=== PATIENT | male | born 1960 | race Caucasian/White ===

== ENCOUNTER 2023-06-24 06:51 | Observation (INO) | payer OTHER ==
[2023-06-20 10:41] VITALS: BMI 28.5
[2023-06-24 07:47] LABS: #Eosinphils 0.3 thou/uL (0.0-0.7); #Monocytes 0.8 thou/uL (0.11-0.59); #Neutrophils 5.2 thou/uL (1.40-6.50); %Basophils 0.4 % (0.0-1.0); %Eosinophils 3.1 % (0.0-10.0); %Lymphocytes 23.1 % (21.0-51.0); %Monocytes 10.1 % (0.0-10.0); %Neutrophils 62.8 % (42.0-75.0); Hemoglobin 14.7 g/dL (14.0-18.0); Mean Corpuscular HGB CONC 33.6 g/dL (32.0-36.0); Mean Corpuscular Hemoglobin 33.1 pg (27.0-31.0); Mean Corpuscular Volume 98.6 fl (78.0-98.0); Mean Platelet Volume 8.5 fL (7.4-10.4); Platelet Count 265 10x3/uL (130-400); RBC Distribution Width 13.1 % (11.5-14.5); Red Blood Cell (RBC) Count 4.44 mill/uL (4.70-6.10); White Blood Cell (WBC) Count 8.3 10x3/uL (4.8-10.8)
[2023-06-24] MEDS ORDERED: CEFAZOLIN 2 GM VIAL ONE (08:05)
[2023-06-24] MEDS ORDERED: Lidocaine 1% MPF 2 ML VIAL ONE (08:05)
[2023-06-24] MEDS ORDERED: Sodium Chloride 0.9% 100 ML ONE (08:05)
[2023-06-24 08:12] LABS: Anion Gap 10 mmol/L (10-20); BUN (Urea Nitrogen) 9 mg/dL (8.4-25.7); Calc. Creatinine Clearance 124 mL/min (70-130); Calcium 9.6 mg/dL (7.8-10.44); Carbon Dioxide 30 mmol/L (23-31); Chloride 104 mmol/L (98-107); Estimated GFR 99; Glucose 106 mg/dL (80-115); Potassium 4.2 mmol/L (3.5-5.1); Sodium 140 mmol/L (136-145)
[2023-06-24] MEDS ORDERED: Vancomycin 1 GM VIAL ONE (09:10)
[2023-06-24] MEDS ORDERED: Thrombin 5000 UNITS/5 ML VIAL ONE (09:10)
[2023-06-24] MEDS ORDERED: SUGAMMADEX SODIUM 200 MG/2 ML VIAL ONE ×2 (09:27→10:49)
[2023-06-24] MEDS ORDERED: Vasopressin 20 UNITS/ML VIAL ONE (09:27)
[2023-06-24] MEDS ORDERED: Famotidine/PF 20 mg/2ml Vial ONE (09:27)
[2023-06-24] MEDS ORDERED: fentaNYL 50 mcg/mL 1 mL Vial ONE ×3 (09:27→12:20)
[2023-06-24] MEDS ORDERED: Vecuronium 10 MG VIAL ONE (09:48)
[2023-06-24] MEDS ORDERED: Lidocaine 1% PF 5 ML VIAL ONE (09:48)
[2023-06-24] MEDS ORDERED: Ondansetron PF 4 MG/2 ML Vial ONE (09:48)
[2023-06-24] MEDS ORDERED: PROPOFOL 200 MG/20 ML VIAL ONE (09:48)
[2023-06-24] MEDS ORDERED: PHENYLEPHRINE-NS 100 MCG/ML 10 ML SYRINGE ONE (09:48)
[2023-06-24] MEDS ORDERED: Dexamethasone 20 MG/5 ML VIAL ONE (09:48)
[2023-06-24] MEDS ORDERED: Rocuronium Bromide 10 MG/ML (10ML VIAL) ONE (09:48)
[2023-06-24] MEDS ORDERED: Ketorolac Tromethamine 30 MG/ML VIAL ONE (09:48)
[2023-06-24] MEDS ORDERED: Acetaminophen/Codeine 30-300mg Tablet PO PRN (10:58)
[2023-06-24] MEDS ORDERED: Ondansetron PF 4 MG/2 ML Vial IVP PRN (10:58)
[2023-06-24] MEDS ORDERED: Milk Of Magnesia 30 ML UDCUP PO PRN (10:58)
[2023-06-24] MEDS ORDERED: Promethazine 25 MG TAB PO PRN (10:58)
[2023-06-24] MEDS ORDERED: Morphine 2 MG/ML VIAL SLOW IVP PRN (10:58)
[2023-06-24] MEDS ORDERED: Cyclobenzaprine 10 MG TAB PO PRN (10:58)
[2023-06-24] MEDS ORDERED: diphenhydrAMINE 50 MG/ML VIAL IVP PRN (10:58)
[2023-06-24] MEDS ORDERED: traMADol HCl 50 MG TAB PO PRN (10:58)
[2023-06-24] MEDS ORDERED: Acetaminophen 325 MG TAB PO PRN (10:58)
[2023-06-24] MEDS ORDERED: Mag-Al 1200 mg/1200 mg/30 ML UDCUP PO PRN (10:58)
[2023-06-24] MEDS ORDERED: Ondansetron HCl/PF 4 MG/2 ML Vial IVP PRN (11:16)
[2023-06-24] MEDS ORDERED: PACU-Morphine 4MG/ML VIAL SLOW IVP PRN (11:16)
[2023-06-24] MEDS ORDERED: Promethazine HCl 25 MG/ML VIAL IM PRN (11:16)
[2023-06-24] MEDS ORDERED: HYDROmorphone 0.5 MG/0.5 ML SYRINGE ONE ×2 (11:23→11:33)
[2023-06-24] MEDS: CEFAZOLIN 2 GM in Sodium Chloride 0.9% 100 ML IVPB SCH ×2 (16:43→23:16)
[2023-06-24] MEDS: Sodium Chloride 0.9% 1,000 ML IV SCH (18:54)
[2023-06-24] MEDS: Acetaminophen/Codeine 30-300mg Tablet PO PRN (19:27)
[2023-06-25] MEDS: Sodium Chloride 0.9% 1,000 ML IV SCH (00:08)
[2023-06-25] MEDS: Acetaminophen/Codeine 30-300mg Tablet PO PRN ×2 (05:18→11:07)
[2023-06-25 08:12] VITALS: BP 127/79; TEMP 97.9
[2023-06-25] MEDS: CEFAZOLIN 2 GM in Sodium Chloride 0.9% 100 ML IVPB SCH (08:22)
== END 2023-06-25 11:15 | disposition home or self-care (01) ==
LOC: SDC 06:51 → SURG A 11:00
PROVIDERS: ADMIT Neurological Surgery; ATTEND Neurological Surgery
PROC: 0SG007J Fusion of Lumbar Vertebral Joint with Autologous Tissue Substitute, Posterior Approach, Anterior Column, Open Approach (ICD-10-PCS; principal; 2023-06-24)
DX: M47.816 Spondylosis without myelopathy or radiculopathy, lumbar region (principal); M51.36 Other intervertebral disc degeneration, lumbar region; M48.062 Spinal stenosis, lumbar region with neurogenic claudication
CPT/HCPCS: 80048; 85025; 93005; 93010; C1713; C1889; J1100; J1170; J1885; J2405; J2704; J3010; J3370; J3490; S0028